=== PATIENT | female | born 1970 | race Caucasian/White ===

== ENCOUNTER 2023-12-03 12:30 | Inpatient (IN) | payer OTHER ==
[~2023-12-03] VITALS: Ht 162.6 cm; Wt 76.7 kg
[2023-12-03 12:50] VITALS: BP 131/75; PULSE 75; RESP 18; TEMP 98.4; O2SAT 99
[2023-12-03] MEDS ORDERED: BENZOCAINE/MENTHOL LOZENGE PO PRN (14:30)
[2023-12-03] MEDS ORDERED: MELATONIN 5 MG TABLET PO PRN (14:30)
[2023-12-03] MEDS ORDERED: OxyCODONE HCL/ACETAMINOPHEN 10-325 MG TABLET PO PRN (14:30)
[2023-12-03] MEDS: OxyCODONE HCL 10 MG IR TABLET PO PRN (14:57)
[2023-12-03] MEDS: ACETAMINOPHEN 325 MG TABLET PO SCH (14:58)
[2023-12-03] MEDS: TiZANidine HCL 4 MG TABLET PO SCH (16:35)
[2023-12-03] MEDS: GABAPENTIN 300 MG CAPSULE PO SCH (16:35)
[2023-12-03 20:00] VITALS: BP 101/52; PULSE 89; RESP 16; TEMP 98.3; O2SAT 96
[2023-12-03] MEDS: ETHYL ALCOHOL 62% ANTISEPTIC NASAL SANITIZER 0.6 ML AMPUL NASAL SCH (20:15)
[2023-12-03] MEDS: SENNOSIDES 8.6 MG TABLET PO SCH (20:16)
[2023-12-03 21:13] VITALS: O2SAT 96
[2023-12-04 07:22] LABS: BASOPHILS % (AUTO) 0.5 % (0.0-2.0); EOSINOPHILS % (AUTO) 4.9 % (1.0-6.0); HEMATOCRIT 22.6 % (36-46); HEMOGLOBIN 7.4 g/dL (12.0-16.0); LYMPHOCYTES # (AUTO) 1.6 K/uL (1.0-4.8); LYMPHOCYTES % (AUTO) 30.6 % (22.0-44.0); MEAN CORPUSCULAR HEMOGLOBIN 30.4 pg (26.0-34.0); MEAN CORPUSCULAR HGB CONC 32.8 G/dL (31.0-37.0); MEAN CORPUSCULAR VOLUME 93 fL (80-100); MONOCYTES # (AUTO) 0.5 K/uL (0.1-1.0); MONOCYTES % (AUTO) 8.7 % (2.0-9.0); NEUTROPHILS # (AUTO) 2.9 K/uL (1.8-7.7); NEUTROPHILS % (AUTO) 55.3 % (40.0-70.0); PLATELET COUNT (AUTO) 522 K/uL (150-450); RED BLOOD CELL COUNT(AUTO) 2.44 MIL/uL (4.00-5.20); RED CELL DISTRIBUTION WIDTH 14.8 % (11.5-14.5); WHITE BLOOD COUNT (AUTO) 5.2 K/uL (4.5-11.0)
[2023-12-04 07:42] LABS: ALANINE AMINOTRANSFERASE 39 U/L (12-78); ALBUMIN 2.4 g/dL (3.4-5.0); ALKALINE PHOSPHATASE 87 U/L (46-116); ANION GAP 4 mmol/L (8-16); ASPARTATE AMINOTRANSFERASE 21 U/L (15-37); BILIRUBIN,TOTAL 0.6 mg/dL (0.1-1.0); CALCIUM, TOTAL 8.4 mg/dL (8.8-10.5); CARBON DIOXIDE 30 mmol/L (22-29); CHLORIDE 106 mmol/L (98-107); CREATININE 0.75 mg/dL (0.60-1.30); GLOMERULAR FILTR. RATE CALC > 60 mL/min (>60); GLUCOSE,RANDOM 97 mg/dL (70-110); SODIUM SERUM 140 mmol/L (136-145); TOTAL PROTEIN, SERUM 6.6 g/dL (6.4-8.2); UREA NITROGEN, BLOOD 17 mg/dL (7-18)
[2023-12-04 08:00] VITALS: BP 124/77; PULSE 78; RESP 16; TEMP 98.6; O2SAT 98
[2023-12-04] MEDS: POLYETHYLENE GLYCOL 3350 17 GM PACKET PO SCH (08:43)
[2023-12-04] MEDS: ASPIRIN 325 MG TABLET PO SCH (08:43)
[2023-12-04] MEDS: ENOXAPARIN SODIUM 40 MG/0.4 ML PF SYRINGE SQ SCH (08:43)
[2023-12-04] MEDS: IBUPROFEN 400 MG TABLET PO PRN (12:05)
[2023-12-04] MEDS: FERROUS SULFATE 325 MG EC TABLET PO SCH (16:15)
[2023-12-04 20:00] VITALS: BP 130/82; PULSE 86; RESP 16; TEMP 98.1; O2SAT 97
[2023-12-04 22:40] VITALS: O2SAT 97
[2023-12-05 07:55] LABS: BASOPHILS % (AUTO) 0.8 % (0.0-2.0); EOSINOPHILS % (AUTO) 4.9 % (1.0-6.0); LYMPHOCYTES # (AUTO) 1.4 K/uL (1.0-4.8); LYMPHOCYTES % (AUTO) 27.5 % (22.0-44.0); MEAN CORPUSCULAR HEMOGLOBIN 29.8 pg (26.0-34.0); MEAN CORPUSCULAR HGB CONC 31.9 G/dL (31.0-37.0); MEAN CORPUSCULAR VOLUME 93 fL (80-100); MONOCYTES # (AUTO) 0.4 K/uL (0.1-1.0); MONOCYTES % (AUTO) 8.3 % (2.0-9.0); NEUTROPHILS % (AUTO) 58.5 % (40.0-70.0); PLATELET COUNT (AUTO) 566 K/uL (150-450); RED BLOOD CELL COUNT(AUTO) 2.68 MIL/uL (4.00-5.20); RED CELL DISTRIBUTION WIDTH 15.2 % (11.5-14.5); WHITE BLOOD COUNT (AUTO) 5.1 K/uL (4.5-11.0)
[2023-12-05 08:05] VITALS: BP 129/85; PULSE 85; RESP 18; TEMP 98.1; O2SAT 98
[2023-12-05] MEDS: FAMOTIDINE 20 MG TABLET PO SCH (11:29)
[2023-12-05 11:53] VITALS: O2SAT 98
[2023-12-05] MEDS: BACLOFEN 10 MG TABLET PO PRN (16:09)
[2023-12-05 20:18] VITALS: BP 137/72; PULSE 92; RESP 18; TEMP 98.2; O2SAT 98
[2023-12-05] MEDS: ACETAMINOPHEN 325 MG TABLET PO PRN (22:13)
[2023-12-05 22:38] VITALS: O2SAT 98
[2023-12-06 08:21] VITALS: BP 140/79; PULSE 80; RESP 18; TEMP 97.9; O2SAT 98
[2023-12-06] MEDS ORDERED: OxyCODONE HCL 5 MG IR TABLET PO PRN ×2 (13:00)
[2023-12-06 20:00] VITALS: BP 113/76; PULSE 80; RESP 18; TEMP 98; O2SAT 98
[2023-12-07 17:43] VITALS: O2SAT 98
[2023-12-07 21:15] VITALS: BP 133/84; PULSE 88; RESP 18; TEMP 98.3; O2SAT 98
[2023-12-07 22:36] VITALS: O2SAT 98
[2023-12-08 08:58] VITALS: BP 140/67; PULSE 82; RESP 18; TEMP 98.4; O2SAT 98
[2023-12-08 11:11] VITALS: O2SAT 98
[2023-12-08] MEDS: SENNOSIDES 8.6 MG TABLET PO PRN (20:05)
[2023-12-08 20:06] VITALS: BP 137/63; PULSE 90; RESP 18; TEMP 98.1; O2SAT 98
[2023-12-09 04:20] VITALS: O2SAT 98
[2023-12-09 07:42] VITALS: BP 137/75; PULSE 81; RESP 18; TEMP 98.3; O2SAT 97
[2023-12-09 12:57] VITALS: O2SAT 97
[2023-12-09 22:05] VITALS: BP 129/65; PULSE 60; RESP 18; TEMP 97.8; O2SAT 100
[2023-12-10 00:40] VITALS: O2SAT 100
[2023-12-10 08:00] VITALS: BP 142/67; PULSE 81; RESP 18; TEMP 98.2; O2SAT 98
[2023-12-10 20:56] VITALS: BP 150/79; PULSE 92; RESP 19; TEMP 98.6; O2SAT 98
[2023-12-10 22:00] VITALS: O2SAT 98
[2023-12-11] VITALS (8 sets, daily range): BP systolic 113–154; BP diastolic 55–97; PULSE 81–102; RESP 18; TEMP 98.1–98.7; O2SAT 96–100
[2023-12-12] MEDS ORDERED: ACET-2247 PO (02:15)
[2023-12-12] MEDS ORDERED: ASPI-989 PO (02:16)
[2023-12-12] MEDS ORDERED: FAMO20 PO (02:16)
[2023-12-12] MEDS ORDERED: FERR325T27 PO (02:17)
[2023-12-12] MEDS ORDERED: GABA-1181 PO (02:17)
[2023-12-12] MEDS ORDERED: POLY17PO62 PO (02:19)
[2023-12-12] MEDS ORDERED: BACL10TA PO (02:21)
[2023-12-12] MEDS ORDERED: OXYC10TA92 PO (02:24)
[2023-12-12] MEDS ORDERED: OXYC5 PO (02:29)
[2023-12-12] MEDS ORDERED: IBUP-1506 PO (02:31)
[2023-12-12 07:06] LABS: BASOPHILS % (AUTO) 0.5 % (0.0-2.0); EOSINOPHILS % (AUTO) 6.5 % (1.0-6.0); HEMATOCRIT 24.3 % (36-46); HEMOGLOBIN 7.8 g/dL (12.0-16.0); LYMPHOCYTES # (AUTO) 1.8 K/uL (1.0-4.8); LYMPHOCYTES % (AUTO) 38.4 % (22.0-44.0); MEAN CORPUSCULAR HEMOGLOBIN 30.6 pg (26.0-34.0); MEAN CORPUSCULAR VOLUME 96 fL (80-100); MONOCYTES # (AUTO) 0.4 K/uL (0.1-1.0); MONOCYTES % (AUTO) 8.1 % (2.0-9.0); NEUTROPHILS # (AUTO) 2.2 K/uL (1.8-7.7); NEUTROPHILS % (AUTO) 46.5 % (40.0-70.0); PLATELET COUNT (AUTO) 334 K/uL (150-450); RED BLOOD CELL COUNT(AUTO) 2.54 MIL/uL (4.00-5.20); RED CELL DISTRIBUTION WIDTH 17.9 % (11.5-14.5); WHITE BLOOD COUNT (AUTO) 4.6 K/uL (4.5-11.0)
[2023-12-12 08:32] VITALS: BP 140/74; PULSE 72; RESP 18; TEMP 98.2; O2SAT 98
[2023-12-12 09:53] VITALS: O2SAT 98
[2023-12-12 19:36] VITALS: BP 131/84; PULSE 92; RESP 18; TEMP 97.4; O2SAT 100
[2023-12-13 00:28] VITALS: O2SAT 100
[2023-12-13 08:17] VITALS: BP 137/91; PULSE 87; RESP 18; TEMP 98.3; O2SAT 100
[2023-12-13 08:45] LABS: BASOPHILS % (AUTO) 0.7 % (0.0-2.0); EOSINOPHILS % (AUTO) 6.8 % (1.0-6.0); HEMATOCRIT 26.1 % (36-46); HEMOGLOBIN 8.4 g/dL (12.0-16.0); MEAN CORPUSCULAR HEMOGLOBIN 30.7 pg (26.0-34.0); MEAN CORPUSCULAR HGB CONC 32.1 G/dL (31.0-37.0); MEAN CORPUSCULAR VOLUME 96 fL (80-100); MONOCYTES # (AUTO) 0.2 K/uL (0.1-1.0); MONOCYTES % (AUTO) 6.7 % (2.0-9.0); NEUTROPHILS # (AUTO) 1.9 K/uL (1.8-7.7); NEUTROPHILS % (AUTO) 55.8 % (40.0-70.0); PLATELET COUNT (AUTO) 313 K/uL (150-450); RED BLOOD CELL COUNT(AUTO) 2.73 MIL/uL (4.00-5.20); RED CELL DISTRIBUTION WIDTH 17.9 % (11.5-14.5); WHITE BLOOD COUNT (AUTO) 3.3 K/uL (4.5-11.0)
[2023-12-13 10:31] VITALS: O2SAT 100
[2023-12-13] MEDS ORDERED: ASPI-1026 PO (10:33)
[2023-12-13] MEDS ORDERED: FERR325T27 PO (10:33)
[2023-12-13] MEDS ORDERED: BACL10TA PO (10:33)
[2023-12-13] MEDS ORDERED: ACET325T51 PO (10:33)
[2023-12-13] MEDS ORDERED: POLY17PO62 PO (10:33)
[2023-12-13] MEDS ORDERED: SENN-277 PO (10:33)
[2023-12-13] MEDS ORDERED: FAMO20 PO (10:33)
[2023-12-13] MEDS ORDERED: OXYC5 PO (10:33)
[2023-12-13] MEDS ORDERED: GABA-1181 PO (10:33)
[2023-12-13] MEDS ORDERED: IBUP-1506 PO (10:33)
== END 2023-12-13 11:15 | disposition home or self-care (01) | DRG 563 ==
LOC: 2WR 13:18
PROVIDERS: ADMIT Physical Medicine & Rehabilitation; ATTEND Physical Medicine & Rehabilitation
DX: S82.142A Displaced bicondylar fracture of left tibia, initial encounter for closed fracture (principal); S42.292A Other displaced fracture of upper end of left humerus, initial encounter for closed fracture; E46 Unspecified protein-calorie malnutrition; Z74.09 Other reduced mobility; D64.9 Anemia, unspecified; F17.210 Nicotine dependence, cigarettes, uncomplicated; R26.9 Unspecified abnormalities of gait and mobility; W10.8XXA Fall (on) (from) other stairs and steps, initial encounter; Z88.0 Allergy status to penicillin; Z88.2 Allergy status to sulfonamides; Z87.442 Personal history of urinary calculi; Z83.3 Family history of diabetes mellitus; Y93.89 Activity, other specified; Y92.89 Other specified places as the place of occurrence of the external cause; Y99.8 Other external cause status; Z68.29 Body mass index [BMI] 29.0-29.9, adult
CPT/HCPCS: 80053; 85025; 87081; 93971; 97110; 97163; 97167; 97530; 97535; 99366; J1650